=== PATIENT | male | born 1960 | race Caucasian/White ===

== ENCOUNTER 2018-11-28 13:19 | Emergency (ER) | payer MEDICAID, SELFPAY ==
[~2018-11-28] VITALS: Ht 172.7 cm; Wt 62.6 kg
[2018-11-28 13:52] VITALS: BP 157/84
--- NOTE | 2018-11-28 15:15 | PHYS DOC ---
Past Medical History Past Medical History: COPD Additional Past Medical Histor: Spinal Stentosis Past Surgical History: Tonsillectomy, Other Additional Past Surgical Histo: Rectal surgery reversal Additional Information: 1 ppd Alcohol Use: None Drug Use: Marijuana Adult General Chief Complaint Chief Complaint: SKIN PROBLEM HPI HPI 58-year-old male presents to ER for complaints of left hand swelling with open wounds on his ring and middle finger. Patient reports his symptoms have been ongoing for several weeks but have worsened over the past several days. Patient denies illicit drug use. He reports he is a daily smoker. Review of Systems Review of Systems Constitutional: Denies fever or chills [] Eyes: Denies change in visual acuity, redness, or eye pain [] HENT: Denies nasal congestion or sore throat [] Respiratory: Denies cough or shortness of breath [] Cardiovascular: No additional information not addressed in HPI [] GI: Denies abdominal pain, nausea, vomiting, bloody stools or diarrhea [] : Denies dysuria or hematuria [] Musculoskeletal: Denies back pain or joint pain [] Integument: Denies rash or skin lesions [] Neurologic: Denies headache, focal weakness or sensory changes [] Endocrine: Denies polyuria or polydipsia [] All other systems were reviewed and found to be within normal limits, except as documented in this note. Allergies Allergies Allergies Coded Allergies Type Severity Reaction Last Updated Verified No Known Drug Allergies 11/28/18 No Physical Exam Physical Exam Constitutional: Well developed, well nourished, no acute distress, non-toxic appearance. [] HENT: Normocephalic, atraumatic, bilateral external ears normal, oropharynx moist, no oral exudates, nose normal. [] Eyes: PERRLA, EOMI, conjunctiva normal, no discharge. [] Neck: Normal range of motion, no tenderness, supple, no stridor. [] Cardiovascular:Heart rate regular rhythm, no murmur [] Lungs & Thorax: Bilateral breath sounds clear to auscultation [] Abdomen: Bowel sounds normal, soft, no tenderness, no masses, no pulsatile masses. [] Skin: Warm, dry, no erythema, no rash. [] Back: No tenderness, no CVA tenderness. [] Extremities: No tenderness, no cyanosis, no clubbing, ROM intact, no edema. [] Neurologic: Alert and oriented X 3, normal motor function, normal sensory function, no focal deficits noted. [] Psychologic: Affect normal, judgement normal, mood normal. [] Current Patient Data Vital Signs Vital Signs Date Time Temp Pulse Resp B/P (MAP) Pulse Ox O2 Delivery O2 Flow Rate FiO2 11/28/18 13:52 97.5 85 20 157/84 (108) 99 Room Air 97.5 EKG EKG [] Radiology/Procedures Radiology/Procedures [] Course & Med Decision Making Course & Med Decision Making Discussion had with patient regarding his left hand infection and need for admission/labs/IV antibiotic treatment. Discussion patient is not wanting to have any treatment and is requesting to leave the ER AMA. In-depth conversation had with patient regarding left hand infection. Patient verbalized understanding of risk of leaving without any treatment or tests. [] Dragon Disclaimer Dragon Disclaimer This electronic medical record was generated, in whole or in part, using a voice recognition dictation system. Departure Departure Impression: Primary Impression: Left against medical advice Additional Impression: Infection of hand Disposition: 07 AGAINST MEDICAL ADVICE Condition: GUARDED Referrals: NO PCP (PCP) Problem Qualifiers CHRISTIANO TIRADO KEG RAISER November 28, 2018 15:15
== END 2018-11-28 15:00 | disposition left against medical advice (07) ==
LOC: ER 13:19
DX: L08.89 Other specified local infections of the skin and subcutaneous tissue (principal); R22.32 Localized swelling, mass and lump, left upper limb; J44.9 Chronic obstructive pulmonary disease, unspecified; F17.200 Nicotine dependence, unspecified, uncomplicated
CPT/HCPCS: 99281